=== PATIENT | female | born 1980 | race Caucasian/White ===

== ENCOUNTER 2017-08-02 19:59 | Emergency (ER) | payer OTHER ==
[2017-08-02] MEDS ORDERED: ONDANSETRON 4 MG INJ IV (20:33)
[2017-08-02] MEDS ORDERED: KETOROLAC 30 MG INJ IV (20:33)
[2017-08-02 21:36] LABS: ADD UMIC NO; UR ASCORBIC ACID NEGATIVE (NEGATIVE); UR BILIRUBIN (Dip) NEGATIVE (NEGATIVE); UR BLOOD (Dip) NEGATIVE (NEGATIVE); UR CLARITY CLEAR (CLEAR); UR COLOR STRAW (YELLOW); UR GLUCOSE (Dip) NEGATIVE (NEGATIVE); UR KETONES (Dip) NEGATIVE (NEGATIVE); UR LEUKOCYTE ESTERASE (Dip) NEGATIVE Leu/ul (NEGATIVE); UR NITRITE (Dip) NEGATIVE (NEGATIVE); UR SPECIFIC GRAVITY (Dip) 1.009 (1.003-1.030); UR TOTAL PROTEIN (Dip) NEGATIVE (NEGATIVE); UR UROBILINOGEN (Dip) NEGATIVE (NEGATIVE)
== END 2017-08-02 21:24 | disposition left against medical advice (07) ==
LOC: FTE 21:24
DX: R10.31 Right lower quadrant pain (principal); R10.11 Right upper quadrant pain; J45.909 Unspecified asthma, uncomplicated
CPT/HCPCS: 81003; 99283

== ENCOUNTER 2018-06-15 19:34 | Emergency (ER) | payer OTHER ==
[2018-06-15] MEDS: KETOROLAC 60 MG INJ IM (21:21)
== END 2018-06-15 21:35 | disposition home or self-care (01) ==
LOC: FTE 19:34
DX: J02.9 Acute pharyngitis, unspecified (principal); J45.909 Unspecified asthma, uncomplicated
CPT/HCPCS: 81025; 96372; 99284-25

== ENCOUNTER 2018-09-26 15:44 | Emergency (ER) | payer OTHER ==
[2018-09-26] MEDS: ACETAMINOPHEN 650MG/20.3ML CUP PO (18:39)
[2018-09-26] MEDS: DEXAMETHASONE 10 MG/ML 1 ML INJ IV (18:40)
[2018-09-26] MEDS: SOD CHLORIDE 0.9% 1,000 ML IV (18:40)
[2018-09-26] MEDS: CEFAZOLIN 2 GM/50 ML (PMX) 50 ML IVPB (18:49)
[2018-09-26] MEDS: KETOROLAC 15 MG INJ IV (19:15)
[2018-09-26] MEDS: ACETAMINOPHEN 160 MG/5ML CUP PO (20:12)
== END 2018-09-26 20:52 | disposition home or self-care (01) ==
LOC: FTE 15:44
DX: J03.90 Acute tonsillitis, unspecified (principal); J45.909 Unspecified asthma, uncomplicated
CPT/HCPCS: 81025; 96374; 96375; 99284-25